=== PATIENT | female | born 1960 | race American Indian/Alaskan Native ===

== ENCOUNTER 2017-10-17 09:45 | Inpatient (IN) | payer MEDICARE ==
[2017-10-17 10:31] LABS: Basophils # (Auto) 0.1 K/mm3 (0.0-0.1); Basophils % (Auto) 0.6 % (0.0-1.8); Eosinophils # (Auto) 0.1 K/mm3 (0.0-0.4); Eosinophils % (Auto) 1.2 % (0.0-4.3); Hematocrit 44.3 % (30.3-42.9); Hemoglobin 14.8 gm/dl (10.1-14.3); Lymphocytes # (Auto) 3.4 K/mm3 (1.2-5.4); Lymphocytes % (Auto) 28.7 % (13.4-35.0); Mean Corpuscular HGB Conc 34 % (30-34); Mean Corpuscular Hemoglobin 31 pg (28-32); Mean Corpuscular Volume 93 fl (79-97); Platelet Count 260 K/mm3 (140-440); Red Blood Count 4.77 M/mm3 (3.65-5.03); Red Cell Distribution Width 13.4 % (13.2-15.2)
[2017-10-17] MEDS ORDERED: MORPHINE IV ONE (10:44)
[2017-10-17] MEDS ORDERED: ZOFRAN IV ONE (10:44)
[2017-10-17] MEDS ORDERED: NACL 0.9% 1000 ML 1,000 ML IV ONE (10:44)
[2017-10-17 10:56] LABS: Alanine Aminotransferase 9 units/L (7-56); Albumin 4.2 g/dL (3.9-5); BUN/Creatinine Ratio 15; Blood Urea Nitrogen 12 mg/dL (7-17); Calcium 9.4 mg/dL (8.4-10.2); Hemolysis Index 15; Lipase 14 units/L (13-60)
[2017-10-17 12:04] LABS: Bilirubin,Urine NEG (Negative); Blood,Urine NEG (Negative); Color,Urine Yellow (Yellow); Protein,Urine <15 mg/dL mg/dL (Negative); Urobilinogen,Urine < 2.0 mg/dL (<2.0); WBC,Urine < 1.0 /HPF (0.0-6.0)
--- NOTE | 2017-10-17 12:07 | Cat Scan Report ---
CT ABDOMEN PELVIS WITH CONTRAST: HISTORY: Left lower quadrant abdominal pain. COMPARISON: none. TECHNIQUE: Helical CT in 1.25mm intervals following IV contrast. Sagittal and coronal reconstructions. FINDINGS: Lung bases: Normal. Liver: Normal. Biliary system: Cholecystectomy. No biliary dilatation. Pancreas: Normal. Spleen: Normal. Kidneys/ureters/bladder: Normal. Adrenal glands: Normal. Aorta: Normal. Intestines: There are multiple diverticula in the descending and sigmoid colon. There is a focal area of inflammation and bowel wall thickening in the sigmoid colon consistent with diverticulitis. No free air or abscess. The remaining bowel loops are unremarkable. Appendix: Normal. Pelvic viscera: The uterus is small in size or has been surgically removed, correlate with history. Ascites: None. Adenopathy: None. Musculoskeletal: Normal. IMPRESSION: Acute sigmoid diverticulitis.
[2017-10-17] MEDS ORDERED: DILAUDID IV ONE ×3 (12:08→14:00)
--- NOTE | 2017-10-17 12:32 | Emergency Department Report ---
ED Abdominal Pain HPI - General Chief Complaint: Abdominal Pain Stated Complaint: ABD PAIN Time Seen by Provider: 10/17/17 10:38 Source: patient Mode of arrival: Wheelchair Limitations: No Limitations - History of Present Illness Initial Comments: 57-year-old female with a past medical history Graves' disease, degenerative disc disease, chronic neck and back pain, and previous surgical history of umbilical hernia, hysterectomy, and unilateral for right presents to the hospital with complaints of abdominal pain 3 days. Pain has been intermittent left lower quadrant stabbing abdominal pain that became more constant and severe today. Pain currently rated 10/10 intensity. Worse with palpation and movement. No alleviating factors. Positive nausea without vomiting, no fever. Severity scale (0 -10): 10 - Related Data Allergies Allergy/AdvReac Type Severity Reaction Status Date / Time indomethacin [From Indocin] Allergy Unknown Verified 10/17/17 10:03 Penicillins Allergy Unknown Verified 10/17/17 10:03 ED Review of Systems ROS: Stated complaint: ABD PAIN Other details as noted in HPI Comment: All other systems reviewed and negative ED Past Medical Hx - Past Medical History Previous Medical History?: Yes Additional medical history: Grraves disease, DJD. Neck pain, Back pain - Surgical History Past Surgical History?: Yes Additional Surgical History: Neck, back surgery, Right shoulder, right elbow, karson Carpel tunnel, hernia repair - Social History Smoking Status: Former Smoker Substance Use Type: Alcohol, Prescribed ED Physical Exam - General Limitations: No Limitations - Other Other exam information: General: Positive distress agreed to pain Head exam: Atraumatic, normocephalic Eyes exam: Normal appearance, anicteric sclerae ENT: Moist mucous membrane, normal oropharynx Neck exam: Normal inspection, full range of motion, no meningismus nontender Respiratory exam: Clear to auscultation bilateral, no wheezes, rales, crackles Cardiovascular: Normal rate and rhythm, normal heart sounds Abdomen: Soft, nondistended, with lower quadrant tenderness, normal bowel sounds , no rebound or guarding Extremity: Full range of motion normal inspection no deformity Back: Normal Inspection, full range of motion, no tenderness Neurologic: Alert, oriented x3, cranial nerves intact, no motor or sensory deficit Psychiatric: Distress secondary to pain Skin: Warm, dry, intact ED Course Vital Signs 10/17/17 10/17/17 10/17/17 10:03 10:46 10:47 Temperature 97.8 F 98.1 F Pulse Rate 83 72 Respiratory 20 20 Rate Blood Pressure 138/90 Blood Pressure 143/81 [Left] O2 Sat by Pulse 97 100 99 Oximetry 10/17/17 10/17/17 11:00 11:20 Temperature Pulse Rate Respiratory 20 Rate Blood Pressure 138/84 Blood Pressure [Left] O2 Sat by Pulse 99 Oximetry - Reevaluation(s) Reevaluation #1: 10/17/17 12:39 continued pain, Dilaudid ordered - Consultations Consultation #1: 10/17/17 12:42 Dr Small (surgery) informed. WIll consult ED Medical Decision Making - Lab Data Result diagrams: 10/17/17 10:17 10/17/17 10:17 Lab Results 10/17/17 10/17/17 10/17/17 Range/Units 10:17 10:17 11:25 WBC 12.0 H (4.5-11.0) K/mm3 RBC 4.77 (3.65-5.03) M/mm3 Hgb 14.8 H (10.1-14.3) gm/dl Hct 44.3 H (30.3-42.9) % MCV 93 (79-97) fl MCH 31 (28-32) pg MCHC 34 (30-34) % RDW 13.4 (13.2-15.2) % Plt Count 260 (140-440) K/mm3 Lymph % (Auto) 28.7 (13.4-35.0) % [place] % (Auto) 8.0 H (0.0-7.3) % Eos % (Auto) 1.2 (0.0-4.3) % Baso % (Auto) 0.6 (0.0-1.8) % Lymph # 3.4 (1.2-5.4) K/mm3 [place] # 1.0 H (0.0-0.8) K/mm3 Eos # 0.1 (0.0-0.4) K/mm3 Baso # 0.1 (0.0-0.1) K/mm3 Seg Neutrophils % 61.5 (40.0-70.0) % Seg Neutrophils # 7.4 (1.8-7.7) K/mm3 Sodium 140 (137-145) mmol/L Potassium 3.8 (3.6-5.0) mmol/L Chloride 100.3 (98-107) mmol/L Carbon Dioxide 23 (22-30) mmol/L Anion Gap 21 mmol/L BUN 12 (7-17) mg/dL Creatinine 0.8 (0.7-1.2) mg/dL Estimated GFR > 60 ml/min BUN/Creatinine Ratio 15 % Glucose 106 H (65-100) mg/dL Calcium 9.4 (8.4-10.2) mg/dL Total Bilirubin 0.50 (0.1-1.2) mg/dL AST 14 (5-40) units/L ALT 9 (7-56) units/L Alkaline Phosphatase 95 (35-129) units/L Total Protein 6.8 (6.3-8.2) g/dL Albumin 4.2 (3.9-5) g/dL Albumin/Globulin Ratio 1.6 % Lipase 14 (13-60) units/L Urine Color Yellow (Yellow) Urine Turbidity Clear (Clear) Urine pH 8.0 H (5.0-7.0) Ur Specific [place] 1.017 (1.003-1.030) Urine Protein <15 mg/dl (Negative) mg/dL Urine Glucose (UA) Neg (Negative) mg/dL Urine Ketones Tr (Negative) mg/dL Urine Blood Neg (Negative) Urine Nitrite Neg (Negative) Urine Bilirubin Neg (Negative) Urine Urobilinogen < 2.0 (<2.0) mg/dL Ur Leukocyte Esterase Neg (Negative) Urine WBC (Auto) < 1.0 (0.0-6.0) /HPF Urine RBC (Auto) 3.0 (0.0-6.0) /HPF U Epithel Cells (Auto) 1.0 (0-13.0) /HPF - Radiology Data Radiology results: report reviewed CT abdomen and pelvis with IV contrast: Acute sigmoid diverticulitis. No abscess or free air - Medical Decision Making Acute diverticulitis No signs of sepsis, abscess, or perforation at this time Significant pain despite morphine. Dilaudid was initiated Nausea control with Zofran Receiving IV fluids Levaquin and Flagyl initiated Surgery consultation as per hospitalist request Hospitalist informed of admission - Differential Diagnosis diverticulitis, renal colic, UTI, ovarian cysts Critical Care Time: No Critical care attestation.: If time is entered above; I have spent that time in minutes in the direct care of this critically ill patient, excluding procedure time. ED Disposition Clinical Impression: Acute diverticulitis, Intractable abdominal pain Disposition: OP ADMIT IP TO THIS HOSP Is pt being admited?: Yes Condition: Stable Time of Disposition: 12:41 (Dr Rojas/hosp)
[2017-10-17] MEDS ORDERED: LEVAQUIN 750MG/150ML 750 MG/150 ML BAG IV ONE (12:37)
--- NOTE | 2017-10-17 13:08 | History and Physical Report ---
History of Present Illness Chief complaint: My stomach hurts History of present illness: 57 YO Female with Graves Disease, DJD S/P Cervical fusion, Chronic Pain presents to ED for evaluation. Pt states that she has experienced abdominal pain for the past 3 days with persistent symptoms throughout the same time frame. Pt states that her pain is 10/10, intermittent, localized to the left lower quadrant, stabbing in nature, constant and more severe today, pain is worse with palpation and movement. No alleviating factors. Pt acknowledges nausea without vomiting. Pt denies fever, chills, CP, Palpitations, Syncope, Trauma, BRBPR, Melena, unintentional weight loss, night sweats, productive cough , or recent ill contacts. Pt seen and evaluated in ED and found to have diverticulitis and initiated on IV antibiotic therapy. Pt unable to tolerate oral intake. Surgery team consulted in ED. Past History Past Medical History: other (Graves Disease, DJD, chronic Pain) Past Surgical History: Other (cervical fusion, right shoulder, Right elbow surgery) Social history: single, lives with family. denies: smoking, alcohol abuse, prescription drug abuse Family history: no significant family history (reviewed) Medications and Allergies Allergies Allergy/AdvReac Type Severity Reaction Status Date / Time indomethacin [From Indocin] Allergy Unknown Verified 10/17/17 10:03 Penicillins Allergy Unknown Verified 10/17/17 10:03 Home Medications Medication Instructions Recorded Confirmed Last Taken Type Methimazole [Tapazole] 2.5 mg PO QDAY 10/17/17 10/17/17 10/16/17 History Trazodone HCl 150 mg PO QHS 10/17/17 10/17/17 10/16/17 History Active Meds: Active Medications Levofloxacin/Dextrose (Levaquin 750mg/150ml) 750 mg in 150 mls @ 100 mls/hr IV ONCE ONE Stop: 10/17/17 14:06 Metronidazole (Flagyl 500 Mg/100 Ml) 500 mg in 100 mls @ 200 mls/hr IV ONCE PARK Review of Systems Constitutional: no weight loss, no weight gain, no fever, no chills Ears, nose, mouth and throat: no ear pain, no ear discharge, no tinnitis, no decreased hearing, no nose pain, no nasal congestion, no nasal discharge Breasts: no change in shape, no swelling, no mass Cardiovascular: no chest pain, no orthopnea, no palpitations, no rapid/ irregular heart beat, no edema, no syncope, no lightheadedness Respiratory: no cough, no cough with sputum, no excessive sputum, no hemoptysis , no shortness of breath, no dyspnea on exertion Gastrointestinal: abdominal pain, nausea, no diarrhea, no constipation, no hematemesis, no BRBPR, no melena, no hematochezia Genitourinary Female: no pelvic pain, no flank pain, no menorrhagia, no dysuria Rectal: no pain, no incontinence, no bleeding Musculoskeletal: no neck stiffness, no neck pain, no shooting arm pain, no arm numbness/tingling, no low back pain, no shooting leg pain, no leg numbness/ tingling Integumentary: no rash, no pruritis, no redness, no sores, no wounds Neurological: no head injury, no transient paralysis, no paralysis, no weakness , no parathesias, no numbness, no tingling, no seizures Psychiatric: no anxiety, no memory loss, no change in sleep habits, no sleep disturbances, no insomnia, no hypersomnia Endocrine: no cold intolerance, no heat intolerance, no polyphagia, no excessive thirst, no polydipsia, no polyuria, no nocturia Hematologic/Lymphatic: no easy bruising, no easy bleeding, no lymphadenopathy, no lymphedema Allergic/Immunologic: no urticaria, no allergic rhinitis, no wheezing, no persistent infections, no anaphylaxis Exam - Constitutional Vitals: Temp Pulse Resp BP Pulse Ox 98.1 F 72 20 138/84 99 10/17/17 10:47 10/17/17 10:47 10/17/17 12:39 10/17/17 11:00 10/17/17 11:00 General appearance: Present: mild distress - EENT Eyes: Present: PERRL ENT: hearing intact, clear oral mucosa - Neck Neck: Present: supple, normal ROM - Respiratory Respiratory effort: normal Respiratory: bilateral: CTA - Cardiovascular Heart Sounds: Present: S1 & S2. Absent: rub, click - Extremities Extremities: pulses symmetrical, No edema Peripheral Pulses: within normal limits - Abdominal General gastrointestinal: Present: soft, tender, non-distended, normal bowel sounds. Absent: hepatomegaly, splenomegaly, mass, hernia Localized gastrointestinal: tender: LLQ Female genitourinary: Present: normal - Integumentary Integumentary: Present: clear, warm, dry - Musculoskeletal Musculoskeletal: gait normal, strength equal bilaterally - Psychiatric Psychiatric: appropriate mood/affect, intact judgment & insight - Neurologic Neurologic: CNII-XII intact, moves all extremities Results - Labs CBC & Chem 7: 10/17/17 10:17 10/17/17 10:17 Labs: Abnormal lab results 10/17/17 10/17/17 10/17/17 Range/Units 10:17 10:17 11:25 WBC 12.0 H (4.5-11.0) K/mm3 Hgb 14.8 H (10.1-14.3) gm/dl Hct 44.3 H (30.3-42.9) % [place] % (Auto) 8.0 H (0.0-7.3) % [place] # 1.0 H (0.0-0.8) K/mm3 Glucose 106 H (65-100) mg/dL Urine pH 8.0 H (5.0-7.0) Assessment and Plan - Patient Problems (1) Acute diverticulitis Current Visit: Yes Status: Acute Plan to address problem: IV Antibiotic therapy, CT abdomen and pelvis, bowel rest, CBC, Surgery consulted in ED (2) SIRS (systemic inflammatory response syndrome) Current Visit: Yes Status: Acute Plan to address problem: secondary to acute diverticulitis. IV abx, IVF, resuscitation, monitor uop q shift, supportive care. (3) Intractable abdominal pain Current Visit: Yes Status: Acute Plan to address problem: Pain control, supportive care, serial abdominal exam. (4) Graves disease Current Visit: Yes Status: Acute Plan to address problem: continue methmazole, supportive care. (5) DVT prophylaxis Current Visit: Yes Status: Acute Plan to address problem: SCD to BLE while in bed, ambulate in hallway qid and prn
[2017-10-17] MEDS ORDERED: TYLENOL PO PRN (13:11)
[2017-10-17] MEDS ORDERED: PROVENTIL IH PRN (13:11)
[2017-10-17] MEDS ORDERED: MORPHINE IV PRN (13:11)
[2017-10-17] MEDS ORDERED: SODIUM CHLORIDE FLUSH SYRINGE 10 ML IV PRN (13:11)
[2017-10-17] MEDS: FLAGYL 500 MG/100 ML 500 MG/100 ML BAG IV SCH ×2 (14:57→22:23)
--- NOTE | 2017-10-17 15:38 | Progress Note ---
Assessment and Plan Full consult dictated - History of Present Illness Initial Comments: 57-year-old female with a past medical history Graves' disease, degenerative disc disease, chronic neck and back pain, and previous surgical history of umbilical hernia, hysterectomy, and unilateral for right presents to the hospital with complaints of abdominal pain 3 days. Pain has been intermittent left lower quadrant stabbing abdominal pain that became more constant and severe today. Pain currently rated 10/10 intensity. Worse with palpation and movement. No alleviating factors. Positive nausea without vomiting, no fever. 57 y/o female c/o LLQ abd pain progressively getting worse over last 2 days. PE - abd soft. localized LLQ tenderness with guarding and mild rebound CT abd - sigmoid diverticulitis without evidence of abscess formation or perforation. Imp - sigmoid diverticulitis (first attack) rec NPO IVF hydration IV antibiotics Keep NPO until pain has resolved off of narcotics will follow. thanks Selected Entries 10/17/17 14:31 O2 Sat by Pulse 98 Oximetry Blood Pressure 130/76 Laboratory Tests 10/17/17 10/17/17 10:17 10:17 WBC 12.0 H Hgb 14.8 H Hct 44.3 H Sodium 140 Potassium 3.8 Chloride 100.3 Carbon Dioxide 23 BUN 12 Creatinine 0.8 Glucose 106 H Total Bilirubin 0.50 AST 14 ALT 9 Alkaline Phosphatase 95 Lipase 14 Objective Vital Signs - 12hr 10/17/17 10/17/17 10/17/17 10:03 10:46 10:47 Temperature 97.8 F 98.1 F Pulse Rate 83 72 Respiratory 20 20 Rate Blood Pressure 138/90 Blood Pressure 143/81 [Left] O2 Sat by Pulse 97 100 99 Oximetry 10/17/17 10/17/17 10/17/17 11:00 11:15 11:20 Temperature Pulse Rate Respiratory 20 Rate Blood Pressure 138/84 163/93 Blood Pressure [Left] O2 Sat by Pulse 99 Oximetry 10/17/17 10/17/17 10/17/17 11:50 12:05 12:15 Temperature Pulse Rate Respiratory 20 Rate Blood Pressure 163/93 128/69 Blood Pressure [Left] O2 Sat by Pulse 96 97 Oximetry 10/17/17 10/17/17 10/17/17 12:30 12:39 12:45 Temperature Pulse Rate Respiratory 20 Rate Blood Pressure 129/59 128/69 Blood Pressure [Left] O2 Sat by Pulse 97 97 Oximetry 10/17/17 10/17/17 14:19 14:31 Temperature Pulse Rate Respiratory Rate Blood Pressure 130/76 130/76 Blood Pressure [Left] O2 Sat by Pulse 96 98 Oximetry - Labs 10/17/17 10:17 10/17/17 10:17 Diabetes panel 10/17/17 Range/Units 10:17 Sodium 140 (137-145) mmol/L Potassium 3.8 (3.6-5.0) mmol/L Chloride 100.3 (98-107) mmol/L Carbon Dioxide 23 (22-30) mmol/L BUN 12 (7-17) mg/dL Creatinine 0.8 (0.7-1.2) mg/dL Glucose 106 H (65-100) mg/dL Calcium 9.4 (8.4-10.2) mg/dL AST 14 (5-40) units/L ALT 9 (7-56) units/L Alkaline Phosphatase 95 (35-129) units/L Total Protein 6.8 (6.3-8.2) g/dL Albumin 4.2 (3.9-5) g/dL Calcium panel 10/17/17 Range/Units 10:17 Calcium 9.4 (8.4-10.2) mg/dL Albumin 4.2 (3.9-5) g/dL Pituitary panel 10/17/17 Range/Units 10:17 Sodium 140 (137-145) mmol/L Potassium 3.8 (3.6-5.0) mmol/L Chloride 100.3 (98-107) mmol/L Carbon Dioxide 23 (22-30) mmol/L BUN 12 (7-17) mg/dL Creatinine 0.8 (0.7-1.2) mg/dL Glucose 106 H (65-100) mg/dL Calcium 9.4 (8.4-10.2) mg/dL Adrenal panel 10/17/17 Range/Units 10:17 Sodium 140 (137-145) mmol/L Potassium 3.8 (3.6-5.0) mmol/L Chloride 100.3 (98-107) mmol/L Carbon Dioxide 23 (22-30) mmol/L BUN 12 (7-17) mg/dL Creatinine 0.8 (0.7-1.2) mg/dL Glucose 106 H (65-100) mg/dL Calcium 9.4 (8.4-10.2) mg/dL Total Bilirubin 0.50 (0.1-1.2) mg/dL AST 14 (5-40) units/L ALT 9 (7-56) units/L Alkaline Phosphatase 95 (35-129) units/L Total Protein 6.8 (6.3-8.2) g/dL Albumin 4.2 (3.9-5) g/dL
[2017-10-17] MEDS ORDERED: DILAUDID ONE (15:49)
[2017-10-17] MEDS: D5/0.45NS 1,000 ML IV SCH (16:59)
[2017-10-17] MEDS: ZOFRAN IV PRN (17:00)
--- NOTE | 2017-10-17 20:21 | Consultation ---
REASON FOR CONSULTATION: Rule out diverticulitis. HISTORY OF PRESENT ILLNESS: The patient is a pleasant 57-year-old female who presents to Emergency Room and is being admitted at this time with a chief complaint of left lower quadrant abdominal pain, which has progressively been getting worse over the last [address] scan of the abdomen was performed, which is consistent with diverticulitis. No evidence of abscess formation or perforation. PAST MEDICAL HISTORY: Pertinent for Graves' disease and extensive degenerative disk disease. PAST SURGICAL HISTORY: Status post three C-spine surgeries including a fusion. Also, status post surgical intervention of her right elbow as well as her right rotator cuff. She also had lumbar surgery. A CRIS and a questionable right oophorectomy. ALLERGIES: ALLERGIC TO PENICILLIN, WHICH CAUSED SWELLING AND ITCHING AT IM INJECTION SITE. ALSO ALLERGIC TO INDOCIN, WHICH CAUSED ITCHING. MEDICATIONS: Include Tapazole. FAMILY HISTORY: Colon cancer, very strong family history including siblings and parents. The patient had a colonoscopy last year, which was essentially negative except for diverticulosis. SOCIAL HISTORY: Denies any smoking or drinking. PHYSICAL EXAMINATION: GENERAL: At this time reveals the patient to be awake, alert, cooperative, in mild discomfort, but no acute distress. VITAL SIGNS: Show a blood pressure 130/76, respirations 20, temperature is currently not documented on the chart. ABDOMEN: Soft, nontender other than the left lower quadrant. There is localized left lower quadrant tenderness with guarding and mild rebound. LABORATORY DATA: Lab work at present includes a CBC which shows a white count of 12,000, H and H is 14.8 and 44.3. Electrolytes are essentially within normal limits. LFTs are also within normal limits. Glucose is 106. A CT scan of the abdomen has been performed and findings as previously discussed. IMPRESSION: At this time is that of a 57-year-old female with what appears to be uncomplicated bout of diverticulitis (first documented episode). RECOMMENDATIONS: At this time, would keep the patient n.p.o. and IV fluid hydration. Begin IV antibiotics, Levaquin and Flagyl as you have done. Would recommend to keep her n.p.o. until her pain has resolved off of narcotics. We will follow with you. Thank you very much for consultation. JOB# [id number] FP/NTS
[2017-10-17] MEDS ORDERED: NON-FORMULARY (Trazodone Hcl [Trazodone Hcl] 150 MG) PO SCH (22:00)
[2017-10-17] MEDS: DESYREL PO SCH (22:24)
[2017-10-17] MEDS: SODIUM CHLORIDE FLUSH SYRINGE 10 ML IV SCH (22:30)
[2017-10-17] MEDS: MORPHINE IV PRN (23:59)
[2017-10-18] MEDS: FLAGYL 500 MG/100 ML 500 MG/100 ML BAG IV SCH ×4 (05:43→21:51)
[2017-10-18] MEDS: ZOFRAN IV PRN ×2 (05:44→15:48)
[2017-10-18] MEDS: MORPHINE IV PRN ×3 (05:44→15:44)
[2017-10-18] MEDS: LEVAQUIN 500MG/100ML 500 MG/100 ML BAG IV SCH (09:24)
[2017-10-18] MEDS: TAPAZOLE PO SCH ×2 (09:24→15:32)
[2017-10-18] MEDS: SODIUM CHLORIDE FLUSH SYRINGE 10 ML IV SCH ×2 (09:32→22:03)
[2017-10-18] MEDS: D5/0.45NS 1,000 ML IV SCH (09:38)
--- NOTE | 2017-10-18 12:46 | Progress Note ---
Assessment and Plan HD # 1 Pt feeling "a little better" but still requiring narcotics for pain relief Abd soft. localized LLQ tenderness with guarding stable acute diverticulitis continue NPO and IV antibiotics f/u exam and wbc in am Selected Entries 10/18/17 07:21 Temperature 98.6 F Pulse Rate 79 Respiratory 20 Rate Blood Pressure 109/59 Objective Vital Signs - 12hr 10/18/17 10/18/17 10/18/17 04:16 05:44 07:21 Temperature 98.7 F 98.6 F Pulse Rate 57 L 79 Respiratory 20 24 20 Rate Blood Pressure 142/81 109/59 O2 Sat by Pulse 99 94 Oximetry - Labs 10/17/17 10:17 10/17/17 10:17
--- NOTE | 2017-10-18 14:48 | Progress Note ---
Assessment and Plan Assessment and plan: 57 YO Female with Graves Disease, DJD S/P Cervical fusion, Chronic Pain admitted for sigmoid diverticulitis/sepsis (1) Acute diverticulitis Current Visit: Yes Status: Acute Plan to address problem: IV Antibiotic therapy, CT abdomen and pelvis, bowel rest, CBC, Surgery consult appreciated ADAT per surgery recs sepsis Current Visit: Yes Status: Acute Plan to address problem: secondary to acute diverticulitis. IV abx, IVF, resuscitation, monitor uop q shift, supportive care. (3) Intractable abdominal pain Current Visit: Yes Status: Acute Plan to address problem: Pain control, supportive care, serial abdominal exam. (4) Graves disease Current Visit: Yes Status: Acute Plan to address problem: continue methmazole, supportive care. (5) DVT prophylaxis Current Visit: Yes Status: Acute Plan to address problem: SCD to BLE while in bed, ambulate in hallway qid and prn History Interval history: Review of systems Constitutional: No fevers, no malaise, no joint pains CVS: No chest pain, no orthopnea, no dyspnea on exertion, no pedal edema GI: abdominal pain is improved, no diarrhea, nausea is improved no vomiting, no constipation Respiratory: No shortness of breath, no wheezing, no coughing Hospitalist Physical - Physical exam Narrative exam: General.: Appears well, no distress, nontoxic HEENT: Moist mucous membranes, extraocular muscles intact, no lymphadenopathy Neck: supple Cardiac: S1-S2 heard Lungs: clear to auscultation bilaterally Abdomen: soft , LLQ tender, nondistended, bowel sounds positive Extremities: no edema clubbing or cyanosis Skin: no rash or lesions Neurologic: no gross focal deficits Psych: appropriate behavior, appropriate mood, corporative, judgment intact - Constitutional Vitals: Temp Pulse Resp BP Pulse Ox 98.6 F 79 20 109/59 94 10/18/17 07:21 10/18/17 07:21 10/18/17 07:21 10/18/17 07:21 10/18/17 07:21 General appearance: Present: mild distress Results - Labs CBC & Chem 7: 10/21/17 05:14 10/21/17 05:14 Labs: Laboratory Last Values WBC 12.0 K/mm3 (4.5-11.0) H 10/17/17 10:17 RBC 4.77 M/mm3 (3.65-5.03) 10/17/17 10:17 Hgb 14.8 gm/dl (10.1-14.3) H 10/17/17 10:17 Hct 44.3 % (30.3-42.9) H 10/17/17 10:17 MCV 93 fl (79-97) 10/17/17 10:17 MCH 31 pg (28-32) 10/17/17 10:17 MCHC 34 % (30-34) 10/17/17 10:17 RDW 13.4 % (13.2-15.2) 10/17/17 10:17 Plt Count 260 K/mm3 (140-440) 10/17/17 10:17 Lymph % (Auto) 28.7 % (13.4-35.0) 10/17/17 10:17 [place] % (Auto) 8.0 % (0.0-7.3) H 10/17/17 10:17 Eos % (Auto) 1.2 % (0.0-4.3) 10/17/17 10:17 Baso % (Auto) 0.6 % (0.0-1.8) 10/17/17 10:17 Lymph # 3.4 K/mm3 (1.2-5.4) 10/17/17 10:17 [place] # 1.0 K/mm3 (0.0-0.8) H 10/17/17 10:17 Eos # 0.1 K/mm3 (0.0-0.4) 10/17/17 10:17 Baso # 0.1 K/mm3 (0.0-0.1) 10/17/17 10:17 Seg Neutrophils % 61.5 % (40.0-70.0) 10/17/17 10:17 Seg Neutrophils # 7.4 K/mm3 (1.8-7.7) 10/17/17 10:17 Sodium 140 mmol/L (137-145) 10/17/17 10:17 Potassium 3.8 mmol/L (3.6-5.0) 10/17/17 10:17 Chloride 100.3 mmol/L (98-107) 10/17/17 10:17 Carbon Dioxide 23 mmol/L (22-30) 10/17/17 10:17 Anion Gap 21 mmol/L 10/17/17 10:17 BUN 12 mg/dL (7-17) 10/17/17 10:17 Creatinine 0.8 mg/dL (0.7-1.2) 10/17/17 10:17 Estimated GFR > 60 ml/min 10/17/17 10:17 BUN/Creatinine Ratio 15 % 10/17/17 10:17 Glucose 106 mg/dL (65-100) H 10/17/17 10:17 Calcium 9.4 mg/dL (8.4-10.2) 10/17/17 10:17 Total Bilirubin 0.50 mg/dL (0.1-1.2) 10/17/17 10:17 AST 14 units/L (5-40) 10/17/17 10:17 ALT 9 units/L (7-56) 10/17/17 10:17 Alkaline Phosphatase 95 units/L (35-129) 10/17/17 10:17 Total Protein 6.8 g/dL (6.3-8.2) 10/17/17 10:17 Albumin 4.2 g/dL (3.9-5) 10/17/17 10:17 Albumin/Globulin Ratio 1.6 % 10/17/17 10:17 Lipase 14 units/L (13-60) 10/17/17 10:17 Urine Color Yellow (Yellow) 10/17/17 11:25 Urine Turbidity Clear (Clear) 10/17/17 11:25 Urine pH 8.0 (5.0-7.0) H 10/17/17 11:25 Ur Specific [place] 1.017 (1.003-1.030) 10/17/17 11:25 Urine Protein <15 mg/dl mg/dL (Negative) 10/17/17 11:25 Urine Glucose (UA) Neg mg/dL (Negative) 10/17/17 11:25 Urine Ketones Tr mg/dL (Negative) 10/17/17 11:25 Urine Blood Neg (Negative) 10/17/17 11:25 Urine Nitrite Neg (Negative) 10/17/17 11:25 Urine Bilirubin Neg (Negative) 10/17/17 11:25 Urine Urobilinogen < 2.0 mg/dL (<2.0) 10/17/17 11:25 Ur Leukocyte Esterase Neg (Negative) 10/17/17 11:25 Urine WBC (Auto) < 1.0 /HPF (0.0-6.0) 10/17/17 11:25 Urine RBC (Auto) 3.0 /HPF (0.0-6.0) 10/17/17 11:25 U Epithel Cells (Auto) 1.0 /HPF (0-13.0) 10/17/17 11:25 - Imaging and Cardiology CT scan - abdomen: image reviewed (sigmoid diverticulitis)
[2017-10-18] MEDS ORDERED: BENADRYL IV ONE (21:15)
[2017-10-18] MEDS: DILAUDID IV PRN (21:52)
[2017-10-18] MEDS: DESYREL PO SCH (21:54)
[2017-10-19] MEDS: DILAUDID IV PRN ×3 (04:03→22:46)
[2017-10-19] MEDS: D5/0.45NS 1,000 ML IV SCH ×2 (04:04→22:47)
[2017-10-19] MEDS ORDERED: TAPAZOLE PO SCH (06:00)
[2017-10-19 06:11] LABS: Basophils % (Auto) 0.4 % (0.0-1.8); Eosinophils # (Auto) 0.2 K/mm3 (0.0-0.4); Eosinophils % (Auto) 3.5 % (0.0-4.3); Hematocrit 39.2 % (30.3-42.9); Hemoglobin 12.7 gm/dl (10.1-14.3); Lymphocytes # (Auto) 3.1 K/mm3 (1.2-5.4); Lymphocytes % (Auto) 50.4 % (13.4-35.0); Mean Corpuscular HGB Conc 33 % (30-34); Mean Corpuscular Hemoglobin 31 pg (28-32); Mean Corpuscular Volume 94 fl (79-97); Monocytes # (Auto) 0.6 K/mm3 (0.0-0.8); Monocytes % (Auto) 9.7 % (0.0-7.3); Platelet Count 230 K/mm3 (140-440); Red Blood Count 4.16 M/mm3 (3.65-5.03); Red Cell Distribution Width 13.4 % (13.2-15.2)
[2017-10-19] MEDS: FLAGYL 500 MG/100 ML 500 MG/100 ML BAG IV SCH ×3 (06:38→21:15)
[2017-10-19] MEDS: LEVAQUIN 500MG/100ML 500 MG/100 ML BAG IV SCH (10:22)
[2017-10-19] MEDS: TAPAZOLE PO SCH (10:22)
[2017-10-19] MEDS: SODIUM CHLORIDE FLUSH SYRINGE 10 ML IV SCH ×2 (11:14→21:19)
--- NOTE | 2017-10-19 11:30 | Progress Note ---
Assessment and Plan HD # 2 Pt feeling much better. minimal LLQ pain at this time Abd soft, minimal LLQ tenderess without guarding wbc down to 6.2 acute diverticulitis, clinically improving attempt cl liq diet Selected Entries 10/19/17 10/19/17 07:13 10:00 Pulse Rate 60 O2 Sat by Pulse 97 Oximetry Blood Pressure 125/74 Laboratory Tests 10/17/17 10/19/17 10:17 05:24 WBC 12.0 H 6.2 Hgb 12.7 Hct 39.2 Objective Vital Signs - 12hr 10/19/17 10/19/17 10/19/17 01:25 04:33 04:43 Temperature 98 F 98.7 F Pulse Rate 74 59 L Respiratory 18 17 16 Rate Blood Pressure 115/64 Blood Pressure 145/78 [Left] O2 Sat by Pulse 99 99 Oximetry 10/19/17 10/19/17 07:13 10:00 Temperature 98.8 F Pulse Rate 60 Respiratory 20 Rate Blood Pressure 125/74 Blood Pressure [Left] O2 Sat by Pulse 99 97 Oximetry - Labs 10/19/17 05:24 10/17/17 10:17
[2017-10-19] MEDS: ZOFRAN IV PRN (12:51)
--- NOTE | 2017-10-19 13:22 | Progress Note ---
Assessment and Plan Assessment and plan: 57 YO Female with Graves Disease, DJD S/P Cervical fusion, Chronic Pain admitted for sigmoid diverticulitis/sepsis (1) Acute diverticulitis Current Visit: Yes Status: Acute Plan to address problem: IV Antibiotic therapy, CT abdomen and pelvis, bowel rest, CBC, Surgery consult appreciated ADAT per surgery recs sepsis Current Visit: Yes Status: Acute Plan to address problem: secondary to acute diverticulitis. IV abx, IVF, resuscitation, monitor uop q shift, supportive care. (3) Intractable abdominal pain Current Visit: Yes Status: Acute Plan to address problem: Pain control, supportive care, serial abdominal exam. (4) Graves disease Current Visit: Yes Status: Acute Plan to address problem: continue methmazole, supportive care. (5) DVT prophylaxis Current Visit: Yes Status: Acute Plan to address problem: SCD to BLE while in bed, ambulate in hallway qid and prn History Interval history: Review of systems Constitutional: No fevers, no malaise, no joint pains CVS: No chest pain, no orthopnea, no dyspnea on exertion, no pedal edema GI: abdominal pain is improved, no diarrhea, nausea is improved no vomiting, no constipation Respiratory: No shortness of breath, no wheezing, no coughing Hospitalist Physical - Physical exam Narrative exam: General.: Appears well, no distress, nontoxic HEENT: Moist mucous membranes, extraocular muscles intact, no lymphadenopathy Neck: supple Cardiac: S1-S2 heard Lungs: clear to auscultation bilaterally Abdomen: soft , LLQ tender, nondistended, bowel sounds positive Extremities: no edema clubbing or cyanosis Skin: no rash or lesions Neurologic: no gross focal deficits Psych: appropriate behavior, appropriate mood, corporative, judgment intact - Constitutional Vitals: Temp Pulse Resp BP Pulse Ox 98.8 F 60 20 125/74 97 10/19/17 07:13 10/19/17 07:13 10/19/17 07:13 10/19/17 07:13 10/19/17 10:00 General appearance: Present: mild distress Results - Labs CBC & Chem 7: 10/21/17 05:14 10/21/17 05:14 Labs: Laboratory Last Values WBC 6.2 K/mm3 (4.5-11.0) 10/19/17 05:24 RBC 4.16 M/mm3 (3.65-5.03) 10/19/17 05:24 Hgb 12.7 gm/dl (10.1-14.3) 10/19/17 05:24 Hct 39.2 % (30.3-42.9) 10/19/17 05:24 MCV 94 fl (79-97) 10/19/17 05:24 MCH 31 pg (28-32) 10/19/17 05:24 MCHC 33 % (30-34) 10/19/17 05:24 RDW 13.4 % (13.2-15.2) 10/19/17 05:24 Plt Count 230 K/mm3 (140-440) 10/19/17 05:24 Lymph % (Auto) 50.4 % (13.4-35.0) H 10/19/17 05:24 [place] % (Auto) 9.7 % (0.0-7.3) H 10/19/17 05:24 Eos % (Auto) 3.5 % (0.0-4.3) 10/19/17 05:24 Baso % (Auto) 0.4 % (0.0-1.8) 10/19/17 05:24 Lymph # 3.1 K/mm3 (1.2-5.4) 10/19/17 05:24 [place] # 0.6 K/mm3 (0.0-0.8) 10/19/17 05:24 Eos # 0.2 K/mm3 (0.0-0.4) 10/19/17 05:24 Baso # 0.0 K/mm3 (0.0-0.1) 10/19/17 05:24 Seg Neutrophils % 36.0 % (40.0-70.0) L 10/19/17 05:24 Seg Neutrophils # 2.2 K/mm3 (1.8-7.7) 10/19/17 05:24 Sodium 140 mmol/L (137-145) 10/17/17 10:17 Potassium 3.8 mmol/L (3.6-5.0) 10/17/17 10:17 Chloride 100.3 mmol/L (98-107) 10/17/17 10:17 Carbon Dioxide 23 mmol/L (22-30) 10/17/17 10:17 Anion Gap 21 mmol/L 10/17/17 10:17 BUN 12 mg/dL (7-17) 10/17/17 10:17 Creatinine 0.8 mg/dL (0.7-1.2) 10/17/17 10:17 Estimated GFR > 60 ml/min 10/17/17 10:17 BUN/Creatinine Ratio 15 % 10/17/17 10:17 Glucose 106 mg/dL (65-100) H 10/17/17 10:17 Calcium 9.4 mg/dL (8.4-10.2) 10/17/17 10:17 Total Bilirubin 0.50 mg/dL (0.1-1.2) 10/17/17 10:17 AST 14 units/L (5-40) 10/17/17 10:17 ALT 9 units/L (7-56) 10/17/17 10:17 Alkaline Phosphatase 95 units/L (35-129) 10/17/17 10:17 Total Protein 6.8 g/dL (6.3-8.2) 10/17/17 10:17 Albumin 4.2 g/dL (3.9-5) 10/17/17 10:17 Albumin/Globulin Ratio 1.6 % 10/17/17 10:17 Lipase 14 units/L (13-60) 10/17/17 10:17 Urine Color Yellow (Yellow) 10/17/17 11:25 Urine Turbidity Clear (Clear) 10/17/17 11:25 Urine pH 8.0 (5.0-7.0) H 10/17/17 11:25 Ur Specific [place] 1.017 (1.003-1.030) 10/17/17 11:25 Urine Protein <15 mg/dl mg/dL (Negative) 10/17/17 11:25 Urine Glucose (UA) Neg mg/dL (Negative) 10/17/17 11:25 Urine Ketones Tr mg/dL (Negative) 10/17/17 11:25 Urine Blood Neg (Negative) 10/17/17 11:25 Urine Nitrite Neg (Negative) 10/17/17 11:25 Urine Bilirubin Neg (Negative) 10/17/17 11:25 Urine Urobilinogen < 2.0 mg/dL (<2.0) 10/17/17 11:25 Ur Leukocyte Esterase Neg (Negative) 03/21/18 11:25 Urine WBC (Auto) < 1.0 /HPF (0.0-6.0) 10/17/17 11:25 Urine RBC (Auto) 3.0 /HPF (0.0-6.0) 10/17/17 11:25 U Epithel Cells (Auto) 1.0 /HPF (0-13.0) 10/17/17 11:25
[2017-10-19] MEDS: DESYREL PO SCH (21:15)
[2017-10-20] MEDS: FLAGYL 500 MG/100 ML 500 MG/100 ML BAG IV SCH ×3 (05:37→22:49)
[2017-10-20] MEDS: LEVAQUIN 500MG/100ML 500 MG/100 ML BAG IV SCH (09:33)
[2017-10-20] MEDS: TAPAZOLE PO SCH (09:33)
[2017-10-20] MEDS: SODIUM CHLORIDE FLUSH SYRINGE 10 ML IV SCH ×2 (09:35→22:49)
[2017-10-20] MEDS: DILAUDID IV PRN ×2 (09:47→15:10)
--- NOTE | 2017-10-20 12:36 | Progress Note ---
Assessment and Plan Pt began experiencing recurrence of acute LLQ abd pain this am upon her diet being advanced Abd soft. LLQ tenderness NPO repeat wbc in am Selected Entries 10/20/17 07:22 Temperature 97.8 F Pulse Rate 72 Respiratory 18 Rate Blood Pressure 112/84 Objective Vital Signs - 12hr 10/20/17 10/20/17 04:34 07:22 Temperature 97.8 F Pulse Rate 75 72 Respiratory 18 Rate Blood Pressure 112/84 O2 Sat by Pulse 97 97 Oximetry - Labs 10/19/17 05:24 10/17/17 10:17
--- NOTE | 2017-10-20 14:11 | Progress Note ---
Assessment and Plan Assessment and plan: 57 YO Female with Graves Disease, DJD S/P Cervical fusion, Chronic Pain admitted for sigmoid diverticulitis/sepsis (1) Acute diverticulitis Current Visit: Yes Status: Acute Plan to address problem: IV Antibiotic therapy, CT abdomen and pelvis showed diverticulitis, bowel rest, CBC, Surgery consulted in ED, ADAT per gen surgery sepsis Current Visit: Yes Status: Acute Plan to address problem: secondary to acute diverticulitis. IV abx, IVF, resuscitation, monitor uop q shift, supportive care. (3) Intractable abdominal pain Current Visit: Yes Status: Acute Plan to address problem: Pain control, supportive care, serial abdominal exam. (4) Graves disease Current Visit: Yes Status: Acute Plan to address problem: continue methmazole, supportive care. (5) DVT prophylaxis Current Visit: Yes Status: Acute Plan to address problem: SCD to BLE while in bed, ambulate in hallway qid and prn History Interval history: Review of systems Constitutional: No fevers, no malaise, no joint pains CVS: No chest pain, no orthopnea, no dyspnea on exertion, no pedal edema GI: abdominal pain is improved, no diarrhea, nausea is improved no vomiting, no constipation Respiratory: No shortness of breath, no wheezing, no coughing Hospitalist Physical - Physical exam Narrative exam: General.: Appears well, no distress, nontoxic HEENT: Moist mucous membranes, extraocular muscles intact, no lymphadenopathy Neck: supple Cardiac: S1-S2 heard Lungs: clear to auscultation bilaterally Abdomen: soft , LLQ tender, nondistended, bowel sounds positive Extremities: no edema clubbing or cyanosis Skin: no rash or lesions Neurologic: no gross focal deficits Psych: appropriate behavior, appropriate mood, corporative, judgment intact - Constitutional Vitals: Temp Pulse Resp BP Pulse Ox 97.8 F 72 18 112/84 97 10/20/17 07:22 10/20/17 07:22 10/20/17 07:22 10/20/17 07:22 10/20/17 07:22 General appearance: Present: mild distress Results - Labs CBC & Chem 7: 10/21/17 05:14 10/21/17 05:14 Labs: Laboratory Last Values WBC 6.2 K/mm3 (4.5-11.0) 10/19/17 05:24 RBC 4.16 M/mm3 (3.65-5.03) 10/19/17 05:24 Hgb 12.7 gm/dl (10.1-14.3) 10/19/17 05:24 Hct 39.2 % (30.3-42.9) 10/19/17 05:24 MCV 94 fl (79-97) 10/19/17 05:24 MCH 31 pg (28-32) 10/19/17 05:24 MCHC 33 % (30-34) 10/19/17 05:24 RDW 13.4 % (13.2-15.2) 10/19/17 05:24 Plt Count 230 K/mm3 (140-440) 10/19/17 05:24 Lymph % (Auto) 50.4 % (13.4-35.0) H 10/19/17 05:24 [place] % (Auto) 9.7 % (0.0-7.3) H 10/19/17 05:24 Eos % (Auto) 3.5 % (0.0-4.3) 10/19/17 05:24 Baso % (Auto) 0.4 % (0.0-1.8) 10/19/17 05:24 Lymph # 3.1 K/mm3 (1.2-5.4) 10/19/17 05:24 [place] # 0.6 K/mm3 (0.0-0.8) 10/19/17 05:24 Eos # 0.2 K/mm3 (0.0-0.4) 10/19/17 05:24 Baso # 0.0 K/mm3 (0.0-0.1) 10/19/17 05:24 Seg Neutrophils % 36.0 % (40.0-70.0) L 10/19/17 05:24 Seg Neutrophils # 2.2 K/mm3 (1.8-7.7) 10/19/17 05:24 Sodium 140 mmol/L (137-145) 10/17/17 10:17 Potassium 3.8 mmol/L (3.6-5.0) 10/17/17 10:17 Chloride 100.3 mmol/L (98-107) 10/17/17 10:17 Carbon Dioxide 23 mmol/L (22-30) 10/17/17 10:17 Anion Gap 21 mmol/L 10/17/17 10:17 BUN 12 mg/dL (7-17) 10/17/17 10:17 Creatinine 0.8 mg/dL (0.7-1.2) 10/17/17 10:17 Estimated GFR > 60 ml/min 10/17/17 10:17 BUN/Creatinine Ratio 15 % 10/17/17 10:17 Glucose 106 mg/dL (65-100) H 10/17/17 10:17 Calcium 9.4 mg/dL (8.4-10.2) 10/17/17 10:17 Total Bilirubin 0.50 mg/dL (0.1-1.2) 10/17/17 10:17 AST 14 units/L (5-40) 10/17/17 10:17 ALT 9 units/L (7-56) 10/17/17 10:17 Alkaline Phosphatase 95 units/L (35-129) 10/17/17 10:17 Total Protein 6.8 g/dL (6.3-8.2) 10/17/17 10:17 Albumin 4.2 g/dL (3.9-5) 10/17/17 10:17 Albumin/Globulin Ratio 1.6 % 10/17/17 10:17 Lipase 14 units/L (13-60) 10/17/17 10:17 Urine Color Yellow (Yellow) 10/17/17 11:25 Urine Turbidity Clear (Clear) 10/17/17 11:25 Urine pH 8.0 (5.0-7.0) H 10/17/17 11:25 Ur Specific [place] 1.017 (1.003-1.030) 10/17/17 11:25 Urine Protein <15 mg/dl mg/dL (Negative) 10/17/17 11:25 Urine Glucose (UA) Neg mg/dL (Negative) 10/17/17 11:25 Urine Ketones Tr mg/dL (Negative) 10/17/17 11:25 Urine Blood Neg (Negative) 10/17/17 11:25 Urine Nitrite Neg (Negative) 10/17/17 11:25 Urine Bilirubin Neg (Negative) 10/17/17 11:25 Urine Urobilinogen < 2.0 mg/dL (<2.0) 10/17/17 11:25 Ur Leukocyte Esterase Neg (Negative) 10/17/17 11:25 Urine WBC (Auto) < 1.0 /HPF (0.0-6.0) 10/17/17 11:25 Urine RBC (Auto) 3.0 /HPF (0.0-6.0) 10/17/17 11:25 U Epithel Cells (Auto) 1.0 /HPF (0-13.0) 10/17/17 11:25
[2017-10-20] MEDS: ZOFRAN IV PRN (15:11)
[2017-10-20] MEDS: D5/0.45NS 1,000 ML IV SCH (18:54)
[2017-10-20] MEDS: DESYREL PO SCH (22:48)
[2017-10-21] MEDS: FLAGYL 500 MG/100 ML 500 MG/100 ML BAG IV SCH ×3 (06:01→21:16)
[2017-10-21 06:57] LABS: Basophils % (Auto) 0.6 % (0.0-1.8); Eosinophils # (Auto) 0.2 K/mm3 (0.0-0.4); Eosinophils % (Auto) 3.1 % (0.0-4.3); Hematocrit 40.8 % (30.3-42.9); Hemoglobin 13.4 gm/dl (10.1-14.3); Lymphocytes # (Auto) 2.7 K/mm3 (1.2-5.4); Lymphocytes % (Auto) 50.9 % (13.4-35.0); Mean Corpuscular HGB Conc 33 % (30-34); Mean Corpuscular Hemoglobin 31 pg (28-32); Mean Corpuscular Volume 95 fl (79-97); Monocytes # (Auto) 0.6 K/mm3 (0.0-0.8); Monocytes % (Auto) 10.4 % (0.0-7.3); Platelet Count 260 K/mm3 (140-440); Red Blood Count 4.31 M/mm3 (3.65-5.03); Red Cell Distribution Width 12.9 % (13.2-15.2)
[2017-10-21 06:59] LABS: Alanine Aminotransferase 34 units/L (7-56); Albumin 3.6 g/dL (3.9-5); BUN/Creatinine Ratio 10; Blood Urea Nitrogen 8 mg/dL (7-17); Calcium 8.7 mg/dL (8.4-10.2); Hemolysis Index 3
[2017-10-21] MEDS: LEVAQUIN 500MG/100ML 500 MG/100 ML BAG IV SCH (09:37)
[2017-10-21] MEDS: TAPAZOLE PO SCH (09:37)
[2017-10-21] MEDS: SODIUM CHLORIDE FLUSH SYRINGE 10 ML IV SCH ×2 (09:38→21:59)
[2017-10-21] MEDS: D5/0.45NS 1,000 ML IV SCH ×2 (11:12→21:26)
[2017-10-21] MEDS: DESYREL PO SCH (21:16)
[2017-10-21] MEDS: DILAUDID IV PRN (23:06)
--- NOTE | 2017-10-21 23:48 | Progress Note ---
Assessment and Plan Assessment and plan: 57 YO Female with Graves Disease, DJD S/P Cervical fusion, Chronic Pain admitted for sigmoid diverticulitis/sepsis (1) Acute diverticulitis Current Visit: Yes Status: Acute Plan to address problem: IV Antibiotic therapy, bowel rest, CBC, Surgery consulted in ED, ADAT per gen surgery sepsis Current Visit: Yes Status: Acute Plan to address problem: secondary to acute diverticulitis. IV abx, IVF, resuscitation, monitor uop q shift, supportive care. (3) Intractable abdominal pain Current Visit: Yes Status: Acute Plan to address problem: Pain control, supportive care, serial abdominal exam. (4) Graves disease Current Visit: Yes Status: Acute Plan to address problem: continue methmazole, supportive care. (5) DVT prophylaxis Current Visit: Yes Status: Acute Plan to address problem: SCD to BLE while in bed, ambulate in hallway qid and prn History Interval history: Review of systems Constitutional: No fevers, no malaise, no joint pains CVS: No chest pain, no orthopnea, no dyspnea on exertion, no pedal edema GI: abdominal pain is improved, no diarrhea, nausea is improved no vomiting, no constipation Respiratory: No shortness of breath, no wheezing, no coughing Hospitalist Physical - Physical exam Narrative exam: General.: Appears well, no distress, nontoxic HEENT: Moist mucous membranes, extraocular muscles intact, no lymphadenopathy Neck: supple Cardiac: S1-S2 heard Lungs: clear to auscultation bilaterally Abdomen: soft , LLQ tender, nondistended, bowel sounds positive Extremities: no edema clubbing or cyanosis Skin: no rash or lesions Neurologic: no gross focal deficits Psych: appropriate behavior, appropriate mood, corporative, judgment intact - Constitutional Vitals: Temp Pulse Resp BP Pulse Ox 99.7 F H 64 18 132/89 98 10/21/17 19:33 10/21/17 19:33 10/21/17 19:33 10/21/17 19:33 10/21/17 20:30 General appearance: Present: mild distress Results - Labs CBC & Chem 7: 10/21/17 05:14 10/21/17 05:14 Labs: Laboratory Last Values WBC 5.3 K/mm3 (4.5-11.0) 10/21/17 05:14 RBC 4.31 M/mm3 (3.65-5.03) 10/21/17 05:14 Hgb 13.4 gm/dl (10.1-14.3) 10/21/17 05:14 Hct 40.8 % (30.3-42.9) 10/21/17 05:14 MCV 95 fl (79-97) 10/21/17 05:14 MCH 31 pg (28-32) 10/21/17 05:14 MCHC 33 % (30-34) 10/21/17 05:14 RDW 12.9 % (13.2-15.2) L 10/21/17 05:14 Plt Count 260 K/mm3 (140-440) 10/21/17 05:14 Lymph % (Auto) 50.9 % (13.4-35.0) H 10/21/17 05:14 [place] % (Auto) 10.4 % (0.0-7.3) H 10/21/17 05:14 Eos % (Auto) 3.1 % (0.0-4.3) 10/21/17 05:14 Baso % (Auto) 0.6 % (0.0-1.8) 10/21/17 05:14 Lymph # 2.7 K/mm3 (1.2-5.4) 10/21/17 05:14 [place] # 0.6 K/mm3 (0.0-0.8) 10/21/17 05:14 Eos # 0.2 K/mm3 (0.0-0.4) 10/21/17 05:14 Baso # 0.0 K/mm3 (0.0-0.1) 10/21/17 05:14 Seg Neutrophils % 35.0 % (40.0-70.0) L 10/21/17 05:14 Seg Neutrophils # 1.9 K/mm3 (1.8-7.7) 10/21/17 05:14 Sodium 141 mmol/L (137-145) 10/21/17 05:14 Potassium 3.4 mmol/L (3.6-5.0) L 10/21/17 05:14 Chloride 99.9 mmol/L (98-107) 10/21/17 05:14 Carbon Dioxide 28 mmol/L (22-30) 10/21/17 05:14 Anion Gap 17 mmol/L 10/21/17 05:14 BUN 8 mg/dL (7-17) 10/21/17 05:14 Creatinine 0.8 mg/dL (0.7-1.2) 10/21/17 05:14 Estimated GFR > 60 ml/min 10/21/17 05:14 BUN/Creatinine Ratio 10 % 10/21/17 05:14 Glucose 100 mg/dL (65-100) 10/21/17 05:14 Calcium 8.7 mg/dL (8.4-10.2) 10/21/17 05:14 Total Bilirubin 0.40 mg/dL (0.1-1.2) 10/21/17 05:14 AST 21 units/L (5-40) 10/21/17 05:14 ALT 34 units/L (7-56) 10/21/17 05:14 Alkaline Phosphatase 87 units/L (35-129) 10/21/17 05:14 Total Protein 5.9 g/dL (6.3-8.2) L 10/21/17 05:14 Albumin 3.6 g/dL (3.9-5) L 10/21/17 05:14 Albumin/Globulin Ratio 1.6 % 10/21/17 05:14 Lipase 14 units/L (13-60) 10/17/17 10:17 Urine Color Yellow (Yellow) 10/17/17 11:25 Urine Turbidity Clear (Clear) 10/17/17 11:25 Urine pH 8.0 (5.0-7.0) H 10/17/17 11:25 Ur Specific [place] 1.017 (1.003-1.030) 10/17/17 11:25 Urine Protein <15 mg/dl mg/dL (Negative) 10/17/17 11:25 Urine Glucose (UA) Neg mg/dL (Negative) 10/17/17 11:25 Urine Ketones Tr mg/dL (Negative) 10/17/17 11:25 Urine Blood Neg (Negative) 10/17/17 11:25 Urine Nitrite Neg (Negative) 10/17/17 11:25 Urine Bilirubin Neg (Negative) 10/17/17 11:25 Urine Urobilinogen < 2.0 mg/dL (<2.0) 10/17/17 11:25 Ur Leukocyte Esterase Neg (Negative) 03/21/18 11:25 Urine WBC (Auto) < 1.0 /HPF (0.0-6.0) 10/17/17 11:25 Urine RBC (Auto) 3.0 /HPF (0.0-6.0) 10/17/17 11:25 U Epithel Cells (Auto) 1.0 /HPF (0-13.0) 10/17/17 11:25
[2017-10-22] MEDS: DILAUDID IV PRN ×2 (04:03→17:48)
[2017-10-22] MEDS: D5/0.45NS 1,000 ML IV SCH ×2 (04:06→17:53)
[2017-10-22] MEDS: FLAGYL 500 MG/100 ML 500 MG/100 ML BAG IV SCH ×3 (05:56→22:16)
[2017-10-22] MEDS: LEVAQUIN 500MG/100ML 500 MG/100 ML BAG IV SCH (10:17)
[2017-10-22] MEDS: SODIUM CHLORIDE FLUSH SYRINGE 10 ML IV SCH ×2 (10:25→22:16)
[2017-10-22] MEDS: TAPAZOLE PO SCH (10:44)
--- NOTE | 2017-10-22 13:44 | Progress Note ---
Assessment and Plan Pt feeling well. no pain Abd soft, non tender + BS wbc down to 5.3 clinically aysmptomatic re-attempt cl liq diet continue present care Selected Entries 10/22/17 10/22/17 12:44 12:52 Temperature 98.2 F Pulse Rate 70 Respiratory 15 Rate Blood Pressure 156/94 [Left] Laboratory Tests 10/21/17 10/21/17 05:14 05:14 WBC 5.3 Hgb 13.4 Hct 40.8 Sodium 141 Potassium 3.4 L Chloride 99.9 Carbon Dioxide 28 BUN 8 Creatinine 0.8 Objective Vital Signs - 12hr 10/22/17 10/22/17 10/22/17 05:21 07:20 12:44 Temperature 98.6 F 98.5 F 98.2 F Pulse Rate 70 65 70 Respiratory 16 16 15 Rate Blood Pressure 97/55 103/64 Blood Pressure [Left] O2 Sat by Pulse 97 98 99 Oximetry 10/22/17 12:52 Temperature Pulse Rate Respiratory Rate Blood Pressure Blood Pressure 156/94 [Left] O2 Sat by Pulse Oximetry - Labs 10/21/17 05:14 10/21/17 05:14
--- NOTE | 2017-10-22 14:34 | Progress Note ---
Assessment and Plan Assessment and plan: 57 YO Female with Graves Disease, DJD S/P Cervical fusion, Chronic Pain admitted for sigmoid diverticulitis/sepsis (1) Acute diverticulitis Current Visit: Yes Status: Acute Plan to address problem: IV Antibiotic therapy, bowel rest, CBC, Surgery consulted in ED, ADAT per gen surgery sepsis Current Visit: Yes Status: Acute Plan to address problem: secondary to acute diverticulitis. IV abx, IVF, resuscitation, monitor uop q shift, supportive care. (3) Intractable abdominal pain Current Visit: Yes Status: Acute Plan to address problem: Pain control, supportive care, serial abdominal exam. (4) Graves disease Current Visit: Yes Status: Acute Plan to address problem: continue methmazole, supportive care. (5) DVT prophylaxis Current Visit: Yes Status: Acute Plan to address problem: SCD to BLE while in bed, ambulate in hallway qid and prn History Interval history: Review of systems Constitutional: No fevers, no malaise, no joint pains CVS: No chest pain, no orthopnea, no dyspnea on exertion, no pedal edema GI: abdominal pain is improved, no diarrhea, nausea is improved no vomiting, no constipation Respiratory: No shortness of breath, no wheezing, no coughing Hospitalist Physical - Physical exam Narrative exam: General.: Appears well, no distress, nontoxic HEENT: Moist mucous membranes, extraocular muscles intact, no lymphadenopathy Neck: supple Cardiac: S1-S2 heard Lungs: clear to auscultation bilaterally Abdomen: soft , LLQ tender, nondistended, bowel sounds positive Extremities: no edema clubbing or cyanosis Skin: no rash or lesions Neurologic: no gross focal deficits Psych: appropriate behavior, appropriate mood, corporative, judgment intact - Constitutional Vitals: Temp Pulse Resp BP Pulse Ox 98.2 F 70 15 156/94 99 10/22/17 12:44 10/22/17 12:44 10/22/17 12:44 10/22/17 12:52 10/22/17 12:44 General appearance: Present: mild distress Results - Labs CBC & Chem 7: 10/21/17 05:14 10/21/17 05:14 Labs: Laboratory Last Values WBC 5.3 K/mm3 (4.5-11.0) 10/21/17 05:14 RBC 4.31 M/mm3 (3.65-5.03) 10/21/17 05:14 Hgb 13.4 gm/dl (10.1-14.3) 10/21/17 05:14 Hct 40.8 % (30.3-42.9) 10/21/17 05:14 MCV 95 fl (79-97) 10/21/17 05:14 MCH 31 pg (28-32) 10/21/17 05:14 MCHC 33 % (30-34) 10/21/17 05:14 RDW 12.9 % (13.2-15.2) L 10/21/17 05:14 Plt Count 260 K/mm3 (140-440) 10/21/17 05:14 Lymph % (Auto) 50.9 % (13.4-35.0) H 10/21/17 05:14 [place] % (Auto) 10.4 % (0.0-7.3) H 10/21/17 05:14 Eos % (Auto) 3.1 % (0.0-4.3) 10/21/17 05:14 Baso % (Auto) 0.6 % (0.0-1.8) 10/21/17 05:14 Lymph # 2.7 K/mm3 (1.2-5.4) 10/21/17 05:14 [place] # 0.6 K/mm3 (0.0-0.8) 10/21/17 05:14 Eos # 0.2 K/mm3 (0.0-0.4) 10/21/17 05:14 Baso # 0.0 K/mm3 (0.0-0.1) 10/21/17 05:14 Seg Neutrophils % 35.0 % (40.0-70.0) L 10/21/17 05:14 Seg Neutrophils # 1.9 K/mm3 (1.8-7.7) 10/21/17 05:14 Sodium 141 mmol/L (137-145) 10/21/17 05:14 Potassium 3.4 mmol/L (3.6-5.0) L 10/21/17 05:14 Chloride 99.9 mmol/L (98-107) 10/21/17 05:14 Carbon Dioxide 28 mmol/L (22-30) 10/21/17 05:14 Anion Gap 17 mmol/L 10/21/17 05:14 BUN 8 mg/dL (7-17) 10/21/17 05:14 Creatinine 0.8 mg/dL (0.7-1.2) 10/21/17 05:14 Estimated GFR > 60 ml/min 10/21/17 05:14 BUN/Creatinine Ratio 10 % 10/21/17 05:14 Glucose 100 mg/dL (65-100) 10/21/17 05:14 Calcium 8.7 mg/dL (8.4-10.2) 10/21/17 05:14 Total Bilirubin 0.40 mg/dL (0.1-1.2) 10/21/17 05:14 AST 21 units/L (5-40) 10/21/17 05:14 ALT 34 units/L (7-56) 10/21/17 05:14 Alkaline Phosphatase 87 units/L (35-129) 10/21/17 05:14 Total Protein 5.9 g/dL (6.3-8.2) L 10/21/17 05:14 Albumin 3.6 g/dL (3.9-5) L 10/21/17 05:14 Albumin/Globulin Ratio 1.6 % 10/21/17 05:14 Lipase 14 units/L (13-60) 10/17/17 10:17 Urine Color Yellow (Yellow) 10/17/17 11:25 Urine Turbidity Clear (Clear) 10/17/17 11:25 Urine pH 8.0 (5.0-7.0) H 10/17/17 11:25 Ur Specific [place] 1.017 (1.003-1.030) 10/17/17 11:25 Urine Protein <15 mg/dl mg/dL (Negative) 10/17/17 11:25 Urine Glucose (UA) Neg mg/dL (Negative) 10/17/17 11:25 Urine Ketones Tr mg/dL (Negative) 10/17/17 11:25 Urine Blood Neg (Negative) 10/17/17 11:25 Urine Nitrite Neg (Negative) 10/17/17 11:25 Urine Bilirubin Neg (Negative) 10/17/17 11:25 Urine Urobilinogen < 2.0 mg/dL (<2.0) 10/17/17 11:25 Ur Leukocyte Esterase Neg (Negative) 10/17/17 11:25 Urine WBC (Auto) < 1.0 /HPF (0.0-6.0) 10/17/17 11:25 Urine RBC (Auto) 3.0 /HPF (0.0-6.0) 10/17/17 11:25 U Epithel Cells (Auto) 1.0 /HPF (0-13.0) 10/17/17 11:25
[2017-10-22] MEDS: DESYREL PO SCH (22:15)
[2017-10-23] MEDS: DILAUDID IV PRN
[2017-10-23] MEDS: FLAGYL 500 MG/100 ML 500 MG/100 ML BAG IV SCH ×2 (06:00→19:41)
[2017-10-23] MEDS: D5/0.45NS 1,000 ML IV SCH (06:49)
[2017-10-23] MEDS: SODIUM CHLORIDE FLUSH SYRINGE 10 ML IV SCH (11:11)
[2017-10-23] MEDS: TAPAZOLE PO SCH (11:11)
[2017-10-23] MEDS: LEVAQUIN 500MG/100ML 500 MG/100 ML BAG IV SCH (11:12)
--- NOTE | 2017-10-23 11:55 | Progress Note ---
Assessment and Plan Pt feeling well without compl. galina cl liq diet Abd soft, non tender stable full liq diet may d/c today on full liq diet if galina d/c on po Levaquin & Flagyl rto this Thurs Selected Entries 10/23/17 07:45 Temperature 98.8 F Pulse Rate 65 Respiratory 18 Rate Blood Pressure 116/68 Laboratory Tests 10/21/17 05:14 WBC 5.3 Objective Vital Signs - 12hr 10/23/17 10/23/17 10/23/17 00:00 00:30 04:38 Temperature 98.5 F Pulse Rate 59 L Respiratory 19 16 18 Rate Blood Pressure 129/69 O2 Sat by Pulse 98 Oximetry 10/23/17 07:45 Temperature 98.8 F Pulse Rate 65 Respiratory 18 Rate Blood Pressure 116/68 O2 Sat by Pulse 98 Oximetry - Labs 10/21/17 05:14 10/21/17 05:14
[2017-10-23 12:19] VITALS: BP 136/88
--- NOTE | 2017-10-23 14:00 | Discharge Summary ---
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 She was diagnosed with acute sigmoid diverticulitis. She received bowel rest IV fluids and IV antibiotics. She improved and was advanced to a full liquid diet. She's been discharged on a course of antibiotics, she'll advance her diet slowly at home as tolerated Diagnoses Acute diverticulitis Sepsis Graves' disease Disposition: TO HOME OR SELFCARE Time spent for discharge: 33 minutes Core Measure Documentation - Palliative Care Palliative Care/ Comfort Measures: Not Applicable - Core Measures Any of the following diagnoses?: none Exam - Constitutional Vitals: Temp Pulse Resp BP Pulse Ox 98.8 F 83 18 136/88 97 10/23/17 12:14 10/23/17 12:14 10/23/17 12:14 10/23/17 12:14 10/23/17 12:14 General appearance: Present: no acute distress, well-nourished - EENT Eyes: Present: PERRL ENT: hearing intact, clear oral mucosa - Neck Neck: Present: supple, normal ROM - Respiratory Respiratory effort: normal Respiratory: bilateral: CTA - Cardiovascular Heart Sounds: Present: S1 & S2. Absent: rub, click - Extremities Extremities: pulses symmetrical, No edema Peripheral Pulses: within normal limits - Abdominal General gastrointestinal: Present: soft, non-tender, non-distended, normal bowel sounds Female genitourinary: Present: normal - Integumentary Integumentary: Present: clear, warm, dry - Musculoskeletal Musculoskeletal: gait normal, strength equal bilaterally - Psychiatric Psychiatric: appropriate mood/affect, intact judgment & insight - Neurologic Neurologic: CNII-XII intact, moves all extremities Plan Follow up with: PRIMARY CARE, [Primary Care Provider] - 7 Days Prescriptions: Ciprofloxacin HCl [Cipro] 500 mg PO Q12H #10 tablet HYDROcodone/APAP 10-325 [[place] 10/325] 1 each PO Q6HR PRN #20 tablet PRN Reason: Pain Methimazole [Tapazole] 5 mg PO DAILY #30 tablet metroNIDAZOLE [Flagyl] 500 mg PO Q8HR #15 tablet Ondansetron [Zofran Odt] 4 mg PO Q8H PRN #20 tab.rapdis PRN Reason: Nausea
== END 2017-10-23 17:50 | disposition home or self-care (01) | DRG 872 ==
LOC: ED 09:45 → 3A 13:11
PROVIDERS: ADMIT Internal Medicine; ATTEND Internal Medicine
DX: A41.9 Sepsis, unspecified organism (principal); K57.32 Diverticulitis of large intestine without perforation or abscess without bleeding; E05.00 Thyrotoxicosis with diffuse goiter without thyrotoxic crisis or storm; Z90.710 Acquired absence of both cervix and uterus; Z88.0 Allergy status to penicillin; Z88.8 Allergy status to other drugs, medicaments and biological substances; Z87.891 Personal history of nicotine dependence; G89.29 Other chronic pain; Z98.1 Arthrodesis status
CPT/HCPCS: 36415; 74177; 80053; 81001; 83690; 85025; 96374; 96375; 96376; J1170; J1200; J1956; J2270; J2405; J7030; Q9967